=== PATIENT | male | born 1955 | race Caucasian/White ===

== ENCOUNTER 2021-04-05 02:22 | Day surgery (SDC) | payer MEDICARE, SELFPAY ==
[2021-03-17 15:40] VITALS: BMI 31.6
[2021-04-05 12:35] VITALS: BP 141/63; PULSE 53; RESP 18; TEMP 36.4; O2SAT 99
[2021-04-05] MEDS: LACTATED RINGERS 1,000 ML 150 ML IV CONT (12:51)
--- NOTE | 2021-04-05 13:04 | WPDANESEPPF ---
Anes - Initial Pre Proc Eval Procedure: Operation Date: 04/05/21 13:45 Proposed Procedures p Screening Colonoscopy - Kody Nichole MD Date/Time: 04/05/21 13:04 Surgeon: Kody Nichole MD Pre Op Diagnosis: hx of colon polyps Patient Data Age: 65 Gender: M Height: 1.78 m Weight: 97.5 kg Last Vital Signs Temp 97.5 F L 04/05/21 12:35 Pulse 53 L 04/05/21 12:35 Resp 18 04/05/21 12:35 BP 141/63 H 04/05/21 12:35 Pulse Ox 99 04/05/21 12:35 Allergies Allergy/AdvReac Type Severity Reaction Status Date / Time No Known Allergies Allergy Verified 04/05/21 12:34 Home Medications Medication Instructions Recorded Confirmed Type atenolol 50 mg tablet 50 mg PO DAILY #90 tablet 05/26/20 04/05/21 Rx lisinopril 10 mg tablet 10 mg PO DAILY #90 tablet 06/07/20 04/05/21 Rx simvastatin 40 mg tablet 40 mg PO DAILY #90 tablet 06/07/20 04/05/21 Rx hydrochlorothiazide 25 mg tablet 25 mg PO DAILY #90 tablet 07/06/20 04/05/21 Rx latanoprost 1 drp EACH EYE HS 03/17/21 04/05/21 History Patient hx anesthesia problems: none Family hx anesthesia problems: none Results Review: All pre-operative results and documents have been reviewed as part of the pre-operative evaluation. [facility] Past Medical History Medical History (Updated 04/05/21 @ 13:03 by Hitesh Mcgregor MD) Essential (primary) hypertension Mixed hyperlipidemia Family History Family History Father Malignant neoplasm of prostate Family history of emphysema Mother Family history of heart disease in male family member before age 55 Social History Social History Smoking packs per day: 1 Smoking cigarettes per day: 20.0 Years smoked: 30 Smoking pack-years: 30.00 Smoking status: Former smoker Smoking end date: 05/07/05 Alcohol intake: current Drinks per week: 4 Living arrangements: with family Spiritual care concerns: No Anes - Eval Final PreProcedure Day of Procedure 04/05/21 13:04 Patient weight: overweight Heart: regular rate and rhythm Lungs: clear to auscultation Airway: Mallampati scale class II Neurological: alert and oriented Last oral intake: >/= 8 hours ASA classification: II Emergent: no Anesthetic plan: proceed Anesthesia type and monitoring: general GIVS and standard monitoring Results Review: All pre-operative results and documents have been reviewed as part of the pre-operative evaluation. Informed Consent: The patient's anesthetic plan and its attendant risks and benefits were discussed with the patient/family/POA. Questions were solicited and answers provided to the satisfaction of the patient/family/POA.
--- NOTE | 2021-04-05 13:04 | PM.HPGS ---
History of Present Illness History of Present Illness Consent: Risks, benefits, and alternatives have been discussed and questions answered. Patient agrees to proceed with procedure. Chief complaint: hx of colon polyps Narrative: Baudilio Mcdowell is a 65 year old male with colon polyp about 7 years ago. Review of Systems Constitutional: Constitutional: Denies headache(s) and Denies weakness Eyes: Eyes: Denies blurry vision ENT: Reports Normal hearing present, Denies headache(s) and Denies neck pain Cardiovascular: Cardiovascular: Denies chest pain and Denies dyspnea Respiratory: Respiratory: Denies dyspnea Gastrointestinal: Gastrointestinal: Reports no additional gastrointestinal complaints Genitourinary: Genitourinary: Denies dysuria Musculoskeletal: Musculoskeletal: Denies neck pain Integumentary/Breasts: Skin/Breast: Denies dry skin Neurologic: Reports Normal hearing present, Denies headache(s) and Denies weakness Psychiatric: Psychiatric: Denies anxiety Endocrine: Endocrine: Denies change in body appearance Hematologic/Lymphatic: Hematologic/Lymphatic: Denies easy bleeding Allergic/Immunologic: Allergic/Immunologic: Denies urticaria PMFSH Past Medical History Medical History (Updated 04/05/21 @ 13:05 by Kody Nichole MD) Colon polyp Essential (primary) hypertension Mixed hyperlipidemia Family History Family History Father Malignant neoplasm of prostate Family history of emphysema Mother Family history of heart disease in male family member before age 55 Social History Social History Smoking packs per day: 1 Smoking cigarettes per day: 20.0 Years smoked: 30 Smoking pack-years: 30.00 Smoking status: Former smoker Smoking end date: 05/07/05 Alcohol intake: current Drinks per week: 4 Living arrangements: with family Spiritual care concerns: No Meds Home Medications and Allergies Home Medications Medication Instructions Recorded Confirmed Type atenolol 50 mg tablet 50 mg PO DAILY #90 tablet 05/26/20 04/05/21 Rx lisinopril 10 mg tablet 10 mg PO DAILY #90 tablet 06/07/20 04/05/21 Rx simvastatin 40 mg tablet 40 mg PO DAILY #90 tablet 06/07/20 04/05/21 Rx hydrochlorothiazide 25 mg tablet 25 mg PO DAILY #90 tablet 07/06/20 04/05/21 Rx latanoprost 1 drp EACH EYE HS 03/17/21 04/05/21 History Allergies Allergy/AdvReac Type Severity Reaction Status Date / Time No Known Allergies Allergy Verified 04/05/21 12:34 Vital Signs Vital Signs - 24 hr 04/05/21 12:35 Temperature 97.5 F L Pulse Rate 53 L Respiratory Rate 18 Blood Pressure 141/63 H Pulse Oximetry 99 Exam Const: General: comfortable and no acute distress HENMT: General nose exam: Normal nares present Eyes: General: appearance normal, both eyes and all related structures Neck: Neck: no JVD Resp: Auscultation: clear to auscultation bilaterally Cardio: Rate: regular rate Rhythm: regular rhythm GI: Inspection: non-distended GI Palp: Yes Soft to palpation Skin: General skin exam: normal color Neuro: General: gait normal Speech: normal speech Extrem: General: normal to inspection Psych: Mental Status: mental status grossly normal Assessment and Plan Assessment and plan (1) Colon polyp: Code(s): K63.5 - Polyp of colon Status: Acute Assessment and Plan: colonoscopy
[2021-04-05 13:22] VITALS: BP 92/52; PULSE 59; RESP 18; O2SAT 95
--- NOTE | 2021-04-05 13:31 | SUR.OPER ---
Descending Colon Polyp unretreived. Dr. Edgar notified by Chelle Vanegas RN and Stacy Cisneros RN.
[2021-04-05 13:32] VITALS: BP 103/53; PULSE 61; RESP 17; O2SAT 99
[2021-04-05 13:42] VITALS: BP 132/69; PULSE 51; RESP 14; O2SAT 99
== END 2021-04-05 13:54 | disposition home or self-care (01) ==
PROVIDERS: PCP Internal Medicine; Visit Provider Internal Medicine Gastroenterology
PROC: 0DJD8ZZ Inspection of Lower Intestinal Tract, Via Natural or Artificial Opening Endoscopic (ICD-10-PCS; CPT 45378; principal; 2021-04-05 13:45)
DX: Z12.11 Encounter for screening for malignant neoplasm of colon (principal); D12.2 Benign neoplasm of ascending colon; K57.30 Diverticulosis of large intestine without perforation or abscess without bleeding; K64.8 Other hemorrhoids; I10 Essential (primary) hypertension; E78.2 Mixed hyperlipidemia; Z87.891 Personal history of nicotine dependence
CPT/HCPCS: 45385; 45380; 88305; J2704; J7120

== ENCOUNTER 2022-02-23 09:01 | Outpatient (CLI) | payer MEDICARE, SELFPAY ==
[2022-02-23 20:48] LABS: Alanine Aminotransferase 23 U/L (6-50); Albumin Level 4.6 g/dL (3.5-5.1); Alkaline Phosphatase 66 U/L (38-126); Anion Gap 13 mmol/L (8-16); Aspartate Amino Transferase 27 U/L (17-59); Bilirubin,Total 0.4 mg/dL (0.2-1.3); Blood Urea Nitrogen 19 mg/dL (9-20); Calcium 9.7 mg/dL (8.4-10.2); Carbon Dioxide 27 mmol/L (22-30); Chloride 100 mmol/L (98-107); Cholesterol 161 mg/dL (0-200); Estimated Glomerular Filt Rate 55; Glucose 106 mg/dL (65-110); HDL Direct 35 mg/dL; Potassium 4.2 mmol/L (3.4-5.0); Sodium 140 mmol/L (137-145); Triglycerides 161 mg/dL (<150)
[2022-02-23 21:00] LABS: LDL Cholesterol Direct 93 mg/dL
[2022-02-23 21:18] LABS: Prostate Specific Antigen 0.5 ng/mL (< OR = 4.0)
== END 2022-02-23 09:02 | disposition home or self-care (01) ==
LOC: ANHGOSHLAB 09:05
PROVIDERS: PCP Family Medicine; Visit Provider Family Medicine
DX: E78.5 Hyperlipidemia, unspecified (principal); Z13.220 Encounter for screening for lipoid disorders; Z12.5 Encounter for screening for malignant neoplasm of prostate; I10 Essential (primary) hypertension
CPT/HCPCS: 36415; 80053; 80061; 84153; G0103